=== PATIENT | male | born 1935 | race Caucasian/White ===

== ENCOUNTER 2017-05-01 17:29 | Observation (INO) | payer OTHER, MEDICARE ==
[~2017-05-01] VITALS: Ht 170.2 cm; Wt 93.9 kg
[~2017-05-01 17:29] MED LIST: AMIODARONE200 MG PO; ASPIRIN CHILDRE81 MG PO; ATORVASTATIN CA40 MG PO; B COMPLEX1 SGL PO; CHROMIUM PO; COLCHICINE0.6 MG PO; FISH OIL1000 MG PO; FOLIC ACID 1 MG PO; FOLIC ACID0.4 MG PO; FUROSEMIDE20 MG PO; LAXATIVE5 M1 PO; MAGNESIUM OXID400 MG PO; MELATONIN 3 MG-1 TAB PO; MULTIVITAMIN1 TAB PO; PROSCAR5 MG PO; PROTONIX 40MG T40 MG PO; SAW PALMETTO S450 MG PO; SELENIMIN PO; SIMVASTATIN40 MG PO; SOTALOL HCL80 MG PO; TRICOR 48MG48 MG PO; VITAMIN C1000 M1 PO; VITAMIN D1000 IU PO; WARFARIN SODIUM5 MG PO
--- NOTE | 2017-05-01 17:38 | NUR ---
PT TO ER C/C CHEST PAIN, PAIN WITH DEEP INSPIRATION AND INDIGESTION X 2 HRS. PATIENT STATES PAIN STARTED WHILE DRIVING. HX OF WI AND AFIB, ON COUMADIN. DENIES NAUSEA, DIAPHORESIS OR JAW PAIN.
--- NOTE | 2017-05-01 17:43 | NUR ---
PT PRESENTS WITH . 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 REPORTS ITS RIGHT AND LEFT LOWER CHEST WALL, ACROSS ENTIRE ANTERIOR LOWER CHEST WALL. REPORTS PAIN WORSENS WITH DEEP BREATH. FLEW FROM [place] ON April. HX OF AMI, LAST 2 YEARS AGO WITH BYPASS SURGERY THEN. AT BEDSIDE. 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 RATES CP 3/10 AT THIS TIME. DENIES N/V, FEVER/CHILLS, SOB. WILL CONT TO MONITOR.
--- NOTE | 2017-05-01 17:49 | ED CARDIAC/CP/PALPITATIONS ---
History of Present Illness General Chief Complaint: Chest Pain Stated Complaint: CP Source: patient, family, old records Exam Limitations: no limitations Vital Signs & Intake/Output Vital Signs & Intake/Output Vital Signs Date Time Temp Pulse Resp B/P B/P Pulse O2 O2 Flow FiO2 Mean Ox Delivery Rate 05/01 1950 65 15 118/68 95 Room Air 05/01 1737 97.3 92 18 154/91 96 Allergies Coded Allergies: metoprolol (RASH 01/14/16) acetaminophen (From PERCOCET) (NERVOUS 01/14/16) oxycodone (From PERCOCET) (NERVOUS 01/14/16) Reconcile Medications Amiodarone HCl 200 MG TABLET 1 TAB PO DAILY HEART (Reported) Ascorbic Acid (Vitamin C) 1,000 MG TABLET 1 TAB PO DAILY SUPPLEMENT (Reported ) Atenolol 50 MG TABLET 1 TAB PO BID HEART (Reported) Atorvastatin Calcium 40 MG TABLET 1 TAB PO DAILY CHOLESTEROL (Reported) Cholecalciferol (Vitamin D3) (Vitamin D3) 1,000 UNIT CAPSULE 1 CAP PO DAILY SUPPLEMENT (Reported) Chromium Picolinate 200 MCG TABLET 1 TAB PO DAILY BLOOD SUGAR (Reported) Digoxin 125 MCG TABLET 1 TAB PO DAILY HEART (Reported) Finasteride 5 MG TABLET 1 TAB PO DAILY PROSTATE (Reported) Folic Acid 0.8 MG CAPSULE 1 CAP PO DAILY SUPPLEMENT (Reported) Losartan Potassium 50 MG TABLET 0.5 TAB PO DAILY HEART (Reported) Magnesium Oxide (Magnesium) 250 MG TABLET 1 TAB PO DAILY SUPPLEMENT (Reported ) Melatonin 5 MG TABLET 1 TAB PO DAILY SUPPLEMENT (Reported) Multivitamin,Ther and Minerals (Multivitamins With Minerals Hp) 1 EACH CAPSULE 1 CAP PO DAILY SUPPLEMENT (Reported) [place]-3/Dha/Epa/Fish Oil (Fish Oil 1,000 MG Softgel) (Unknown Strength) CAPSULE (Unknown Dose) PO DAILY SUPPLEMENT (Reported) Omeprazole 20 MG TABLET.DR 1 TAB PO DAILY ACID REFLUX (Reported) Sennosides/Docusate Sodium (Senokot-S Tablet) 8.6 MG-50 MG TABLET 1 TAB PO DAILY LAXATIVE (Reported) Warfarin Sodium 5 MG TABLET 1 TAB PO AD BLOOD THINNER (Reported) Triage Note: PT TO ER C/C CHEST PAIN, PAIN WITH DEEP INSPIRATION AND INDIGESTION X 2 HRS. PATIENT STATES PAIN STARTED WHILE DRIVING. HX OF RI AND AFIB, ON COUMADIN. DENIES NAUSEA, DIAPHORESIS OR JAW PAIN. Triage Nurses Notes Reviewed? yes Onset: Abrupt Duration: hour(s): (3), better, gone now Timing: single episode today Quality/Severity: moderate, ingestion Location: central, epigastric Radiation: no radiation Activities at Onset: DRIVING Prior Chest Pain/Card Workup: no prior cardiac workup, heart attack Nitro Today/Relief: no nitro taken today Aspirin Today: 81 mg x 1 (PT TAKES DAILY) HPI: 81-year-old male with a hx of coronary artery disease, A. fib, and GERD presents complaining of chest pain for the past 3 hours. Patient reports that he was driving his car when he suddenly felt pain on both sides of his chest. Pain was associated with indigestion and feelings of heartburn. Patient reports pain is located just below his nipple line on both sides of the chest. when the pain was present patient reported that it was a 8 out of 10 and did not radiate. He describes the pain as a dull ache that is worse with deep inspiration. He reports that he had similar symptoms several years ago when he had a heart attack. Patient states that about 20 or 30 minutes after arriving to the emergency department his pain is gone away completely. He did not take any medications for the pain. There are no alleviating or aggravating factors. Patient also reports that over the past week he has had cough and congestion. Patient is on Coumadin for A. fib. No nausea, vomiting, abdominal pain, back pain, fever, hemoptysis, sweats, chills. His national sales executive is Dr. Rice. (SMITHA DELGADO PA-C) Past History Travel History Traveled to [place] past 21 day No Medical History Any Pertinent Medical History? see below for history Cardiovascular: AFIB, angina, CAD, hypertension, hyperlipidemia, CABG PACER Respiratory: pneumonia Gastrointestinal: GERD Renal: benign prost hyperplasia Musculoskeletal: gout, osteoarthritis Blood Disorders: DVT History of MRSA: No History of VRE: No History of CDIFF: No Pneumonia Vaccine: 09/10/07 Surgical History Surgical History: CABG, knee replacement (right), pacemaker placement cardiac valve replacement Psychosocial History Who do you live with Spouse Services at Home Nursing What is your primary language Tajik Tobacco Use: Quit >30 days ago Family History Hx Contributory? Yes (SMITHA DELGADO PA-C) Review of Systems Review of Systems Constitutional: Reports: no symptoms. EENTM: Reports: no symptoms. Respiratory: Reports: see HPI, cough. Cardiovascular: Reports: see HPI, chest pain. GI: Reports: no symptoms. Genitourinary: Reports: no symptoms. Musculoskeletal: Reports: no symptoms. Skin: Reports: no symptoms. Neurological/Psychological: Reports: no symptoms. Hematologic/Endocrine: Reports: no symptoms. Immunologic/Allergic: Reports: no symptoms. All Other Systems: Reviewed and Negative (SANDY ANSARI,SMITHA) Physical Exam Physical Exam General Appearance: well developed/nourished, no apparent distress, alert, awake , comfortable Head: atraumatic, normal appearance Eyes: Bilateral: normal appearance, PERRL, EOMI. Ears, Nose, Throat: normal pharynx, normal ENT inspection, hearing grossly normal Neck: normal inspection, supple, full range of motion Respiratory: normal breath sounds, chest non-tender, no respiratory distress, lungs clear Cardiovascular: regular rate/rhythm, normal peripheral pulses Peripheral Pulses: 2+ tibialis posterior (R), 2+ tibialis posterior (L), 2+ dorsalis pedis (R), 2+ dorsalis pedis (L) Gastrointestinal: normal bowel sounds, non-tender Back: normal inspection, normal range of motion, no vertebral tenderness Extremities: normal inspection, normal capillary refill, normal range of motion, no edema Neurologic/Psych: no motor/sensory deficits, awake, alert, oriented x 3, normal gait, normal mood/affect Reflexes: 2+: knee (R), knee (L). Skin: intact, normal color, warm/dry Lymphatic: no anterior cervical ying Core Measures ACS in differential dx? Yes Severe Sepsis Present: No Septic Shock Present: No (SANDY ANSARI,SMITHA) Progress Differential Diagnosis: AMI, aortic dissection, atrial fibrillation, CHF/pulm edema, costochondritis, myocarditis, pancreatitis, pericarditis, pneumonia, pneumothorax, pulmonary embolism, rib fracture Plan of Care: Orders Procedure Date/time Status Regular Diet 05/02 B Active TROPONIN LEVEL 05/02 0300 Active EKG 05/02 300 Active TROPONIN LEVEL 05/01 2140 Complete EKG 05/01 2140 Active Patient Data 05/01 2047 Active OXYGEN SETUP (GEN) 05/01 2037 Active Saline Lock 05/[address] in observation 05/01 2037 Active Vital Signs 05/01 2037 Active Activity/Ambulation 05/01 2037 Active Code Status 05/01 2037 Active Add-on Test (ER Only) 05/01 1927 Active Add-on Test (ER Only) 05/01 1818 Active URINALYSIS 05/01 1818 Complete D-DIMER 05/01 180 Complete MAGNESIUM 05/01 180 Complete LIPASE 05/01 180 Complete B-TYPE NATRIURETIC PEP (BNP) 05/01 180 Complete Intake & Output 05/01 1748 Active TROPONIN LEVEL 05/01 1737 Complete PROTHROMBIN TIME 05/01 1737 Complete COMPREHENSIVE METABOLIC PANEL 05/01 1737 Complete CBC WITHOUT DIFFERENTIAL 05/01 1737 Complete EKG 05/01 173 Active Laboratory Tests 05/01/17 2144: Troponin I < 0.01 05/01/171817: Magnesium Cancelled, [id number]-Hhgdcxkmvmq Pept Cancelled, Lipase Cancelled, D-Dimer High Sensitivty Cancelled, Urine Color YEL, Urine Clarity CLEAR, Urine pH 6.0, Ur Specific [place] 1.015, Urine Protein NEG, Urine Ketones NEG, Urine Nitrite NEG, Urine Bilirubin NEG, Urine Urobilinogen 0.2, Ur Leukocyte Esterase NEG, Ur Microscopic EXAM NOT REQUIRED, Urine Hemoglobin NEG, Urine Glucose NEG 05/01/171807: PT 33.0 H, INR 3.18 H, D-Dimer High Sensitivty < 200 05/01/171804: Anion Gap 7, Estimated GFR > 60, BUN/Creatinine Ratio 28.6 H, Glucose 122 H, Calcium 9.5, Magnesium 1.9, Total Bilirubin 0.7, AST 28, ALT 37, Alkaline Phosphatase 53, Troponin I < 0.01, Lez-L-Kvgsfgcwjyb Pept 651 H, Total Protein 6.5, Albumin 3.9, Globulin 2.6, Albumin/Globulin Ratio 1.5, Lipase 144, CBC w Diff NO MAN DIFF REQ, RBC 4.51 L, MCV 95.8 H, MCH 31.5 H, RDW 14.1, MPV 7.6, Gran % 69.1, Lymphocytes % 18.3 L, Monocytes % 10.9 H, Eosinophils % 1.4, Basophils % 0.3, Absolute Granulocytes 4.8, Absolute Lymphocytes 1.3, Absolute Monocytes 0.8 H, Absolute Eosinophils 0.1, Absolute Basophils 0, PUBS MCHC 32.9 L Patient is currently chest pain-free and appears well on exam. Due to his history of RI with similar symptoms he will need a cardiac workup. 7:19 PM: Initial blood work and chest x-ray is within normal limits. Troponin is negative. Patient's national sales executive Dr. Rice was paged. Patient will require another set of troponin and EKG. 7:29 PM: Spoke with on-call cardiology Dr. Palmer. He feels patient needs to stay for obs even after a second negative troponin due to history of RI that presented similarly. Spoke with case management and they'll work on placement patient. Patient will be placed in ED observation to rule out acute coronary syndrome. Spoke with MOD and admission orders put in place. (SMITHA DELGADO PA-C) Initial ED EKG: a flutter with predom 3:1 AV block, A rate 220, LBBB Comments: PATIENT: DOROTA ARREDONDO PRESENT AGE: 81 PATIENT ACCOUNT NO: [id number] : 36 LOCATION: [facility] ORDERING PHYSICIAN: SMITHA DELGADO PA-C SERVICE DATE: 05/01/17 EXAM TYPE: RAD - XRY-PORTABLE CHEST XRAY EXAMINATION: XR PORTABLE CHEST CLINICAL INFORMATION: Chest pain COMPARISON: Chest x-ray 05/23/2016. CT chest 05/23/2015 TECHNIQUE: Portable frontal view of the chest was obtained. 6:36 PM FINDINGS: Status post median sternotomy. Pacemaker leads in right atrium and right ventricle. There is vascular wall calcifications of thoracic aorta. Linear streaky scarring and/or subsegmental atelectasis in the peripheral left midlung. This is less pronounced than chest x-ray of 05/23/2015. No consolidative infiltrate. No pulmonary vascular congestion and no pleural effusion. IMPRESSION: No acute abnormality the chest. DICTATED BY: WALDO PITTMAN MD DATE/TIME DICTATED:05/01/171903 MELTER OPERATOR:SUKI DATE/TIME TRANSCRIBED:05/01/171903 (SMITHA DELGADO PA-C) Departure Departure Disposition: STILL A PATIENT Condition: Stable Clinical Impression Primary Impression: Chest pain Qualifiers: Chest pain type: unspecified Qualified Code: R07.9 - Chest pain, unspecified Referrals: THOMAS JOHNSON MD (PCP/Family) Departure Forms: Customer Survey General Discharge Information Observation Note Spoke With: GINA EPPS MD Physician Advisor Notified: SHELLY VIERA,LETI [address] Patient In: ED Observation Rationale for Observation: My rational for observation is as follows; patient reports chest pain that is similar to previous RI 2 years ago. He'll require telemetry monitoring, monitoring vital signs, monitoring symptoms, serial labs, serial EKGs, cardiology consult, stress test. (SMITHA DELGADO PA-C) PA/STUDIO ARTIST Co-Sign Statement Statement: ED Attending supervision documentation- x I saw and evaluated the patient. I have also reviewed all the pertinent lab results and diagnostic results. I agree with the findings and the plan of care as documented in the PA's/STUDIO ARTIST's documentation. [] I have reviewed the ED Record and agree with the PA's/STUDIO ARTIST's documentation. [] Additions or exceptions (if any) to the PAs/STUDIO ARTIST's note and plan are summarized below: [] (JOLLY VIERA,PEPE) Critical Care Note Critical Care Note Critical Care Time: non-applicable (SMITHA DELGADO PA-C)
--- NOTE | 2017-05-01 18:06 | NUR ---
STARTED IV, FREDDIE BLOOD WORK AND SENT TO LAB. MADISON DELGADO AT BEDSIDE AT THIS TIME.
[2017-05-01 18:17] LABS: ABSOLUTE BASOPHIL COUNT 0 /CUMM (0.0-0.2); ABSOLUTE EOSINOPHIL COUNT 0.1 /CUMM (0.0-0.7); ABSOLUTE GRANULOCYTE CT 4.8 /CUMM (1.4-6.5); ABSOLUTE LYMPH COUNT 1.3 /CUMM (1.2-3.4); ABSOLUTE MONOCYTE COUNT 0.8 /CUMM (0.10-0.60); BASOPHIL % 0.3 % (0.0-2.0); EOSINOPHIL % 1.4 % (0-5); GRANULOCYTE % 69.1 % (42.2-75.2); HEMATOCRIT 43.2 % (42-52); MEAN CORPUSCULAR HGB 31.5 PG (27.0-31.0); MEAN CORPUSCULAR HGB CONC 32.9 G/DL (33.0-37.0); MEAN CORPUSCULAR VOLUME 95.8 FL (80.0-94.0); MEAN PLATELET VOLUME 7.6 FL (7.4-10.4); PLATELET COUNT 131 /CUMM (130-400); RBC DISTRIBUTION WIDTH 14.1 % (11.5-14.5); RED BLOOD CELL CT 4.51 /CUMM (4.70-6.10); WHITE BLOOD CELL COUNT 6.9 /CUMM (4.8-10.8)
--- NOTE | 2017-05-01 18:51 | NUR ---
URINE OBTAINED AND SENT TO LAB. PT DENIES CP AT THIS TIME.
[2017-05-01] MEDS ORDERED: ATENOLOL50 M1 PO (19:00)
[2017-05-01] MEDS ORDERED: WARFARIN SODIUM5 M1 PO (19:00)
[2017-05-01] MEDS ORDERED: ATORVASTATIN CA40 M1 PO (19:00)
[2017-05-01] MEDS ORDERED: OMEPRAZOLE20 M3 PO (19:01)
[2017-05-01] MEDS ORDERED: FISH OIL 1,0001 EAC3 PO (19:01)
[2017-05-01] MEDS ORDERED: LOSARTAN POTASS50 M1 PO (19:01)
[2017-05-01] MEDS ORDERED: SENOKOT-S TABL1 EACH PO (19:02)
[2017-05-01] MEDS ORDERED: MULTIVITAMINS1 EAC3 PO (19:02)
[2017-05-01] MEDS ORDERED: VITAMIN C1000 M4 PO (19:03)
[2017-05-01] MEDS ORDERED: MAGNESIUM250 M2 PO (19:03)
[2017-05-01] MEDS ORDERED: VITAMIN D31000 UNI1 PO (19:03)
[2017-05-01] MEDS ORDERED: FINASTERIDE5 M1 PO (19:04)
[2017-05-01] MEDS ORDERED: DIGOXIN125 MCG PO (19:04)
[2017-05-01] MEDS ORDERED: MELATONIN5 M7 PO (19:04)
[2017-05-01] MEDS ORDERED: CHROMIUM PICO200 MC2 PO (19:05)
[2017-05-01] MEDS ORDERED: AMIODARONE HCL200 M1 PO (19:05)
[2017-05-01] MEDS ORDERED: FOLIC ACID0.8 M1 PO (19:05)
--- NOTE | 2017-05-01 19:10 | RADIOLOGY REPORT ---
EXAMINATION: XR PORTABLE CHEST CLINICAL INFORMATION: Chest pain COMPARISON: Chest x-ray 05/23/2016. CT chest 05/23/2015 TECHNIQUE: Portable frontal view of the chest was obtained. 6:36 PM FINDINGS: Status post median sternotomy. Pacemaker leads in right atrium and right ventricle. There is vascular wall calcifications of thoracic aorta. Linear streaky scarring and/or subsegmental atelectasis in the peripheral left midlung. This is less pronounced than chest x-ray of 05/23/2015. No consolidative infiltrate. No pulmonary vascular congestion and no pleural effusion. IMPRESSION: No acute abnormality the chest.
--- NOTE | 2017-05-01 19:52 | NUR ---
PT RESTING IN BED AT THIS TIME, RESP EVEN AND NONLABORED, EQUAL RISE AND FALL OF THE CHEST AND IN NAD. DENIES PAIN OR DISCOMFORT AT THIS TIME. REMAINS AT BEDSIDE. PT REMAINS ON MONITORS IN ROOM. DENIES SOB.
--- NOTE | 2017-05-01 20:45 | NUR ---
PT REMAINS PAIN FREE. IS AWARE OF BEING ADMITTED FOR OBS. , ASHA WENT HOME. PT REMAINS ON MONITOR IN ROOM. DENIES NAUSEA OR SOB. ASSISTED WITH URINAL, 400 OUTPUT. WILL CONT TO MONITOR.
--- NOTE | 2017-05-01 21:46 | NUR ---
REPEAT TROPONIN DRAWN AND EKG COMPLETED BY PATRON ATTENDANT. PT CONT TO DENY CP OR SOB. DENIES NAUSEA. WILL CONT TO MONITOR.
--- NOTE | 2017-05-01 22:05 | NUR ---
GAVE PT CRACKERS AND JUICE PER HIS REQUEST.
--- NOTE | 2017-05-01 22:09 | History & Physical ---
GUSTAVO PUENTE 05/01/17 9039: General Information and HPI MD Statement: I have seen and personally examined DOROTA ARREDONDO and documented this H&P. The patient is a 81 year old M who presented with a patient stated chief complaint of chest pain Source of Information: patient, old records Exam Limitations: no limitations History of Present Illness: 79-year-old gentleman from home with pmh significant for NSTEMI April 2015, s/p coronary artery bypass surgery, MAZE/JANAE ligation and bioprosthetic aortic valve replacement, tachybradycardia syndrome s/p dual-chamber pacemaker on 05/08 done at [facility], history of right leg DVT, PAF on Coumadin came to hospital for evaluation of chest pressure. 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 He initially thought it was heartburn and took a couple of TUMs without relief. This episode lasted till about 4pm, associated with pleuritic chest pain and lightheadness and worsened to about 8/10. Nurse present there took his vitals and said that they were normal. On interview he was painfree. About a week ago he saw his PCP Dr. Johnson for a sinus infection and was given Mucinex. States that he had an echo done 6 months ago and two months ago he had his pacemaker interrogated at Dr. Meraz's Office. Denies radiation, SOB, palpitations, syncope, orthopnea, pedal edema fever, chills, bowel and bladder symptoms Allergies/Medications Allergies: Coded Allergies: metoprolol (RASH 01/14/16) acetaminophen (From PERCOCET) (NERVOUS 01/14/16) oxycodone (From PERCOCET) (NERVOUS 01/14/16) Home Med list Amiodarone HCl 200 MG TABLET 1 TAB PO DAILY HEART (Reported) Ascorbic Acid (Vitamin C) 1,000 MG TABLET 1 TAB PO DAILY SUPPLEMENT (Reported ) Atenolol 50 MG TABLET 1 TAB PO BID HEART (Reported) Atorvastatin Calcium 40 MG TABLET 1 TAB PO DAILY CHOLESTEROL (Reported) Cholecalciferol (Vitamin D3) (Vitamin D3) 1,000 UNIT CAPSULE 1 CAP PO DAILY SUPPLEMENT (Reported) Chromium Picolinate 200 MCG TABLET 1 TAB PO DAILY BLOOD SUGAR (Reported) Digoxin 125 MCG TABLET 1 TAB PO DAILY HEART (Reported) Finasteride 5 MG TABLET 1 TAB PO DAILY PROSTATE (Reported) Folic Acid 0.8 MG CAPSULE 1 CAP PO DAILY SUPPLEMENT (Reported) Losartan Potassium 50 MG TABLET 0.5 TAB PO DAILY HEART (Reported) Magnesium Oxide (Magnesium) 250 MG TABLET 1 TAB PO DAILY SUPPLEMENT (Reported ) Melatonin 5 MG TABLET 1 TAB PO DAILY SUPPLEMENT (Reported) Multivitamin,Ther and Minerals (Multivitamins With Minerals Hp) 1 EACH CAPSULE 1 CAP PO DAILY SUPPLEMENT (Reported) Avon-3/Dha/Epa/Fish Oil (Fish Oil 1,000 MG Softgel) (Unknown Strength) CAPSULE (Unknown Dose) PO DAILY SUPPLEMENT (Reported) Omeprazole 20 MG TABLET.DR 1 TAB PO DAILY ACID REFLUX (Reported) Sennosides/Docusate Sodium (Senokot-S Tablet) 8.6 MG-50 MG TABLET 1 TAB PO DAILY LAXATIVE (Reported) Warfarin Sodium 5 MG TABLET 1 TAB PO AD BLOOD THINNER (Reported) Compliance With Home Meds: GOOD Observation Initial Note - I have personally examined DOROTA ARREDONDO on 05/01/17 at 2250. The disposition of DOROTA ARREDONDO is uncertain at this time and before a determination can be made, he requires a period of observation for the following reasons multiple cardiac risk factors including previous NH. LELO score 3 (13% of all cause mortalilty, recurrent NH), BENTLEY score 116, intermediate, 1% risk of inhospital mortality and 7% post discharge Mortality. Past History Travel History Traveled to [place] past 21 day No Medical History Cardiovascular: AFIB, angina, CAD, hypertension, hyperlipidemia, CABG PACER Respiratory: pneumonia Gastrointestinal: GERD Renal: benign prost hyperplasia Musculoskeletal: gout, osteoarthritis Blood Disorders: DVT History of MRSA: No History of VRE: No History of CDIFF: No Pneumonia Vaccine: 09/10/07 Surgical History Surgical History: CABG, knee replacement (right), pacemaker placement cardiac valve replacement Past Family/Social History Psychosocial History Who Do You Live With? spouse Services at Home: Nursing Primary Language: Albanian Functional Ability ADLs Independent: dressing, eating, toileting, bathing. Ambulation: cane IADLs Independent: telephone. Needs Assist: shopping, housework, finances, transportation, medication admin. Review of Systems Review of Systems Constitutional: Denies: chills, diaphoresis, fever, malaise, weakness, unexplained weight loss. Cardiovascular: Reports: chest pain. Denies: edema, orthopena, palpitations, peripheral edema, syncope. Respiratory: Denies: cough, hemoptysis, orthopnea, short of breath, sputum production, stridor, wheezing. GI: Denies: abdominal pain, bloating, constipation, diarrhea, distention, bowel incontinence, melena, nausea, bloody stool, changes in stool, vomiting, steatorrhea. Genitourinary: Denies: discharge, dysuria, frequency, hematuria, hesitation, nocturia, pain, urgency. Exam & Diagnostic Data Last 24 Hrs of Vital Signs/I&O Vital Signs Date Time Temp Pulse Resp B/P B/P Pulse O2 O2 Flow FiO2 Mean Ox Delivery Rate 05/01 2235 96.2 78 16 121/80 95 Room Air 05/01 1950 65 15 118/68 95 Room Air 05/01 1737 97.3 92 18 154/91 96 Physical Exam General Appearance Alert, Oriented X3, Cooperative, No Acute Distress Skin No Significant Lesion HEENT Atraumatic, PERRLA, EOMI, Mucous Membr. moist/pink Neck Supple, No JVD, No thryomegaly, +2 Carotid Pulse wo Bruit, No LAD Cardiovascular Regular Rate, Normal S1, Normal S2 Lungs Clear to Auscultation, Normal Air Movement Abdomen Normal Bowel Sounds, Soft, No Tenderness Neurological Normal Speech, Strength at 5/5 X4 Ext, Normal Tone, Sensation Intact, Cranial Nerves 3-12 NL Extremities No Edema, Normal Pulses, mild decrease ROM of left arm Vascular Normal Pulses, Pulses Symmetrical Last 24 Hrs of Labs/Luther: Laboratory Tests 05/01/174: Troponin I < 0.01 05/01/17 181: Magnesium Cancelled, Loy-A-Dklbhuvuzua Pept Cancelled, Lipase Cancelled, D-Dimer High Sensitivty Cancelled, Urine Color YEL, Urine Clarity CLEAR, Urine pH 6.0, Ur Specific [place] 1.015, Urine Protein NEG, Urine Ketones NEG, Urine Nitrite NEG, Urine Bilirubin NEG, Urine Urobilinogen 0.2, Ur Leukocyte Esterase NEG, Ur Microscopic EXAM NOT REQUIRED, Urine Hemoglobin NEG, Urine Glucose NEG 05/01/17 180: PT 33.0 H, INR 3.18 H, D-Dimer High Sensitivty < 200 06/22/17 1805: Anion Gap 7, Estimated GFR > 60, BUN/Creatinine Ratio 28.6 H, Glucose 122 H, Calcium 9.5, Magnesium 1.9, Total Bilirubin 0.7, AST 28, ALT 37, Alkaline Phosphatase 53, Troponin I < 0.01, Pkk-J-Afukzbsoynf Pept 651 H, Total Protein 6.5, Albumin 3.9, Globulin 2.6, Albumin/Globulin Ratio 1.5, Lipase 144, CBC w Diff NO MAN DIFF REQ, RBC 4.51 L, MCV 95.8 H, MCH 31.5 H, RDW 14.1, MPV 7.6, Gran % 69.1, Lymphocytes % 18.3 L, Monocytes % 10.9 H, Eosinophils % 1.4, Basophils % 0.3, Absolute Granulocytes 4.8, Absolute Lymphocytes 1.3, Absolute Monocytes 0.8 H, Absolute Eosinophils 0.1, Absolute Basophils 0, PUBS MCHC 32.9 L Diagnostic Data EKG Results Normal sinus rhythm, old Left bundle branch block CXR Results FINDINGS: Status post median sternotomy. Pacemaker leads in right atrium and right ventricle. There is vascular wall calcifications of thoracic aorta. Linear streaky scarring and/or subsegmental atelectasis in the peripheral left midlung. This is less pronounced than chest x-ray of 05/23/2015. No consolidative infiltrate. No pulmonary vascular congestion and no pleural effusion. IMPRESSION: No acute abnormality the chest. Assessment/Plan Assessment: 79-year-old gentleman from home with pmh significant for NSTEMI April 2015, s/p coronary artery bypass surgery, MAZE/JANAE ligation and bioprosthetic aortic valve replacement, tachybradycardia syndrome s/p dual-chamber pacemaker on 05/08 done at [facility], history of right leg DVT, PAF on Coumadin came to hospital for evaluation of chest pressure. Will admit to telemetry as observation. As Ranked By This Provider Problem List: 1. Chest pain Assessment/Plan d/d NTEMI vs unstable angina VS GERD LELO score 3 (13% of all cause mortalilty, recurrent NH), BENTLEY score 116, intermediate, 1% risk of inhospital mortality and 7% post discharge Mortality. admit to tele floor as OBS for continuous cardiac monitoring will trend trop and EKG to r/o ACS Last Echo per our records show EF of 55%, Mild-to- moderate tricuspid regurgitation, abnormal septal motion, Catheter/pacemaker wire in the right ventricular cavity ED contacted Cardiology Continue home meds of Dose Coumadin per INR DVT ppx with Coumadin heart health diet full code Qualifiers Chest pain type: unspecified Qualified Code: R07.9 - Chest pain, unspecified Core Measures/Miscellaneous Acute Coronary Syndrome ACS Diagnosis: No Cerebrovascular Accident CVA/TIA Diagnosis: No Congestive Heart Failure CHF Diagnosis: No VTE (View Protocol) VTE Risk Factors: Acute medical illness, Age > 40 [facility] prophylaxis d/t: No contraindications No VTE Pharm Prophylaxis d/t: No contraindications VTE Diagnosis: No VTE Type: NONE VTE Confirmed by (Test): NONE Sepsis (View Protocol) Severe Sepsis Present: No Septic Shock Septic Shock Present: No Miscellaneous Documentation Attending Case Discussed With: GINA EPPS MD Primary Care Physician: THOMAS JOHNSON MD Patient sees these Specialists Dr. Meraz Level of Patient Care: Telemetry ELPIDIO ANTOINE 05/01/17 2303: Resident Review Statement Resident Statement: examined this patient, reviewed images Other Findings: Patient is 81 year old male with PMH of CAD status post CABG in 2014, bioprosthetic atrial valve replacement, followed by dual-chamber permanent pacemaker placement for tachybradycardia syndrome, ablation of right atrial appendage, paroxysmal atrial fibrillation on anticoagulation. Patient reports that he was in his usual state of health when around 3pm today, he started having chest discomfort he best explained as heart burn. 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 8/10, over his precordal region. He denied any associated palpitations, shortness of breath however he reported of dizziness and lightheadedness. Patient said that he had his blood pressure taken by nurse at that time and she told he that he needs to go to ER. Patient reports that he has been very complient with taking his medications and had a follow up appointment with Dr. Dani Meraz in May 2017. Vitals and Labs as anabelle CXR- normal Assessment and plan Will admit patient to telemetry floor for closer monitoring given his history of NH followd by CABG in 2014 will trend troponins and get serial EKG Will request for Cardiology consult. Patient reports he had an echocardiogram done in Dr. Dani Metcalf office 6 months ago, will obtain records. Patient is on warfarin for paroxysmal Atrial fibrillation, will follow up morning INR and order warfarin accordingly Patient is continued on home meds including digoxin, amiodarone, statin, atenolol, losartan etc Patient reports he had sinus infection 1 week ago, he does not have any leukocytosis and has been afebrile. Will continue to monitor and order mucinex to losen the phelm. Will obtain lower resp culture DVT ppx patient on warfarin, supra therapeutic INR Patient is full code. [facility] 0919: Attending Review Statement Attending Statement Attending MD Statement: examined this patient, discuss w/resident/PA/OPERATIONS BOARDMAN, agreed w/resident/PA/OPERATIONS BOARDMAN, discussed with family, reviewed EMR data (avail)
--- NOTE | 2017-05-01 22:23 | NUR ---
BED 179
--- NOTE | 2017-05-01 22:33 | NUR ---
REPORT GIVEN TO KRISTIN NEAL AND TRANSPORT BOOKED.
[2017-05-02 04:05] LABS: ABSOLUTE BASOPHIL COUNT 0 /CUMM (0.0-0.2); ABSOLUTE EOSINOPHIL COUNT 0.1 /CUMM (0.0-0.7); ABSOLUTE GRANULOCYTE CT 3.8 /CUMM (1.4-6.5); ABSOLUTE LYMPH COUNT 1.7 /CUMM (1.2-3.4); ABSOLUTE MONOCYTE COUNT 0.7 /CUMM (0.10-0.60); BASOPHIL % 0.6 % (0.0-2.0); EOSINOPHIL % 2.1 % (0-5); HEMATOCRIT 43.6 % (42-52); MEAN CORPUSCULAR HGB 32.1 PG (27.0-31.0); MEAN CORPUSCULAR HGB CONC 33.5 G/DL (33.0-37.0); MEAN CORPUSCULAR VOLUME 95.8 FL (80.0-94.0); MEAN PLATELET VOLUME 7.8 FL (7.4-10.4); PLATELET COUNT 113 /CUMM (130-400); PT 26.5 SEC (9.4-12.5); RBC DISTRIBUTION WIDTH 13.6 % (11.5-14.5); RED BLOOD CELL CT 4.55 /CUMM (4.70-6.10); WHITE BLOOD CELL COUNT 6.4 /CUMM (4.8-10.8)
--- NOTE | 2017-05-02 05:20 | PN-Observation ---
Observation Note Observation Note _ I have personally examined DOROTA ARREDONDO. him disposition is uncertain at this time. Before a determination can be made, he requires continued observation for the following reasons: * Cardiology consult Assessment/Plan Assessment: 81 year old man with multiple medical problems significant for NSTEMI April 2015 s/p CABG, MAZE.JANAE ligation with bioprosthetic aortic valve replacement, Tachybrady syndrome s/p dual chamber pacemaker, and paroxsysmal atrial fibrillation coumadin seen for evaluation of chest pressure and lighteadedness. #Chest Pain, Rule Out ACS #History of NSTEMI #CAD s/p CABG #History of Paroxsysmal Atrial Fibrillation #Bioprosthetic Aortic Valve #Tachybrady Syndrome s/p Pacemaker Patient of cardiology Dr. Dani Maldonado. He was reportedly seen in the office within the last six months where he reportedly had an echocardiogram done. Vital signs upon initial evaluation were significant for systolic BP up to 154. Labs demonstrated CBC/BMP/LFT/Lipase/BNP that were within normal limits, initial troponin negative, EKG-NSR with old LBBB, CXR-no acute findings. Patient was placed under observation on the telemetry floor for further evaluation. -Telemetry Observation -Trend troponin/EKG -Amiodarone 200mg PO Daily -Digoxin 125mcg PO Daily -Mag-Ox 400mg PO Daily -Cardiology Consult -Obtain echocardiogram records -Daily INR, dose Coumadin accordingly #Hypertension -Atenolol 50mg PO BID -Losartan 25mg PO Daily #Hyperlipidemia-Atorvastatin 40mg PO Daily #BPH-Finasteride 5mg PO Daily #GERD-Omeprazole 20mg PO Daily Pain Plan-None Bowel Regimen-Senna Diet-Heart Healthy Diet DVT PPx-On Coumadin Code Status-FULL CODE Problem List: 1. Chest pain Qualifiers Chest pain type: unspecified Qualified Code: R07.9 - Chest pain, unspecified Consulting Request: Consulting Specialty: Cardiology Subjective Follow-up For: Chest Pain Tele-Events Since Last Visit: Paced Rhythm HR 62-82 PVCs Subjective: Patient seen and examined. He is seen lying flat in bed resting comfortably. He appears to be in no acute distress. He reports that his chest pain and associated pain with deep breaths has completely resovled since he came in the ED yesterday. He otherwise states that he feels fine and has no new subjective complaints. He does however comment that last week we was seen by his PCP for evaluation of a 'sinus infection' and has some nasal/sinus discomfort and associated clear sputum production without fever. He does state that he 'pulled' his left shoulder a recent trip as well. Otherwise he denies any lightheadedness/dizziness, headache, fever, chills, chest pain/discomfort, shortness of breath, nausea, vomiting. Review of Systems Constitutional: Reports: see HPI. Objective Last 24 Hrs of Vital Signs/I&O Vital Signs Date Time Temp Pulse Resp B/P B/P Pulse O2 O2 Flow FiO2 Mean Ox Delivery Rate 05/02 0756 98.0 62 14 120/82 95 Room Air 05/02 0000 78 121/80 05/01 2235 96.2 78 16 121/80 95 Room Air 05/01 1950 65 15 118/68 95 Room Air 05/01 1737 97.3 92 18 154/91 96 Intake & Output 05/02 1600 05/02 0800 05/02 0000 Intake Total 100 Output Total 600 400 Balance -500 -400 Intake, Oral 100 Output, Urine 600 400 Patient 93.894 kg Weight Weight Estimated Measurement Method Physical Exam General Appearance: Alert, Oriented X3, Cooperative, No Acute Distress Other Physical Findings: General-well developed, well nourished elderly man in no acute distress HEENT-NCAT, PERRL, EOMI, anicteric sclera Neck-Supple, no JVD Chest-S1, S2 w/o m/g/r; RRR, Mild Left Scapular tenderness Lung-CTA Bilaterally Abdomen- Soft, mild left sided abdominal tenders w/o guarding or rigidity, nondistended, bowel sounds intact Neuro- Awake and alert, CN II - XII grossly intact Ext- normal pulses, non cyanosis/clubbing/edema
[2017-05-02 07:56] VITALS: BP 120/82
--- NOTE | 2017-05-02 09:16 | Admission Certification ---
Admission Certification Certification Statement - As attending physician, I certify that at the time of - admission, based on clinical presentation, severity of - symptoms, need for further diagnostic testing and - therapeutic interventions, and risk of adverse outcomes - without in-hospital treatment, in my clinical assessment, - this patient requires an acute hospital stay for a minimum - of two nights or longer. I have also considered psychsocial - factors such as support system, advanced age, financial - issues, cognitive issues, and failed out-patient treatments, - past re-admission history, safety of patient, and lack of - compliance as applicable. Specific rationale supporting this admission is: chest pain
--- NOTE | 2017-05-02 09:19 | PN- Att Addend ---
Attending Addendum Attending Brief Note Patient on evaluation this morning denies chest pain. General Appearance: Alert, No Acute Distress Skin: Grossly normal HEENT: PEERLA Neck: Supple, No JVD Cardiovascular: Regular Rate, Normal S1, Normal S2, No Murmurs Lungs: Clear to Auscultation, Normal Air Movement Abdomen: Normal Bowel Sounds, Soft, No Tenderness Neurological: Normal Speech, Strength at 5/5 X4 Ext, Cranial Nerves 3-12 NL, Reflexes 2+ Extremities: No Clubbing, No Cyanosis, No Edema Vascular: Normal Pulses Assessment 79-year-old with history of COPD status post CABG, bioprosthetic aortic valve replacement, tachybradycardia syndrome status post dual-chamber pacemaker, history of DVT and paroxysmal atrial fibrillation on Coumadin presents with lower chest pain that is across his lower chest wall. Pain lasted for a few minutes and then resolve. This cardiac workup including EKGs and troponins have remained negative. He is currently being observed. His last echo was 6 months back. We will get a cardiac evaluation. Further workup as per the accounts receivable associate. Plan Continue all home meds Echocardiogram as per cardiology Follow cardiology recommendations Continue Coumadin Current Medications Sig/Edi Start time Last Medication Dose Route Stop Time Status Admin Amiodarone HCl 200 MG DAILY 05/02 1000 AC PO Atenolol 50 MG BID 05/01 2229 AC 05/02 PO 0000 Atorvastatin Calcium 40 MG 1700 05/02 1700 AC PO Digoxin 0.125 MG 1700 05/02 1700 AC PO Finasteride 5 MG DAILY 05/02 1000 AC PO Losartan Potassium 25 MG DAILY 05/02 1000 AC PO Magnesium Oxide 400 MG DAILY 05/02 1000 AC PO Melatonin 5 MG AT BEDTIME 05/01 2300 AC 05/02 PO 0000 Omeprazole 20 MG DAILY AC 05/02 0700 AC 05/02 PO 0544 Senna/Docusate Sodium 1 TAB DAILY 05/02 1000 AC PO Laboratory Tests 05/02 05/02 05/01 0330 0330 2144 Chemistry Sodium (137 - 145 mmol/L) 135 L Potassium (3.5 - 5.1 mmol/L) 4.2 Chloride (98 - 107 mmol/L) 102 Carbon Dioxide (22 - 30 mmol/L) 26 Anion Gap (5 - 16) 7 BUN (9 - 20 mg/dL) 14 Creatinine (0.7 - 1.2 mg/dL) 0.7 Estimated GFR (>60 ml/min) > 60 BUN/Creatinine Ratio (7 - 25 %) 20.0 Troponin I (<0.11 ng/ml) < 0.01 < 0.01 Triglycerides (<150 mg/dL) 89 Cholesterol (< 200 MG/DL) 124 LDL Cholesterol, Calc (65 - 129 mg/dL) 58 L HDL Cholesterol (40 - 60 mg/dL) 49 Cholesterol/HDL Ratio (0.00 - 4.88 %) 3 Coagulation PT (9.4 - 12.5 SEC) 26.5 H INR (0.90 - 1.17) 2.55 H Hematology CBC w Diff NO MAN DIFF REQ WBC (4.8 - 10.8 /CUMM) 6.4 RBC (4.70 - 6.10 /CUMM) 4.55 L Hgb (14.0 - 18.0 G/DL) 14.6 Hct (42 - 52 %) 43.6 MCV (80.0 - 94.0 FL) 95.8 H MCH (27.0 - 31.0 PG) 32.1 H RDW (11.5 - 14.5 %) 13.6 Plt Count (130 - 400 /CUMM) 113 L MPV (7.4 - 10.4 FL) 7.8 Gran % (42.2 - 75.2 %) 59.0 Lymphocytes % (20.5 - 51.1 %) 27.2 Monocytes % (1.7 - 9.3 %) 11.1 H Eosinophils % (0 - 5 %) 2.1 Basophils % (0.0 - 2.0 %) 0.6 Absolute Granulocytes (1.4 - 6.5 /CUMM) 3.8 Absolute Lymphocytes (1.2 - 3.4 /CUMM) 1.7 Absolute Monocytes (0.10 - 0.60 /CUMM) 0.7 H Absolute Eosinophils (0.0 - 0.7 /CUMM) 0.1 Absolute Basophils (0.0 - 0.2 /CUMM) 0 PUBS MCHC (33.0 - 37.0 G/DL) 33.5 Toxicology Digoxin (0.8 - 2.0 ng/mL) 0.7 L 05/01 05/01 1818 1808 Chemistry Magnesium Cancelled Vdj-B-Gstbrcgtrfr Pept Cancelled Lipase Cancelled Coagulation PT (9.4 - 12.5 SEC) 33.0 H INR (0.90 - 1.17) 3.18 H D-Dimer High Sensitivty (0 - 243 ng/ml) Cancelled < 200 Urines Urine Color (YEL,AMB,STR) YEL Urine Clarity (CLEAR) CLEAR Urine pH (5.0 - 8.0) 6.0 Ur Specific [place] (1.001 - 1.035) 1.015 Urine Protein (NEG,<30 MG/DL) NEG Urine Ketones (NEG) NEG Urine Nitrite (NEG) NEG Urine Bilirubin (NEG) NEG Urine Urobilinogen (0.1 - 1.0 EU/dl) 0.2 Ur Leukocyte Esterase (NEG) NEG Ur Microscopic EXAM NOT REQUIRED Urine Hemoglobin (NEG) NEG Urine Glucose (N MG/DL) NEG 05/01 1805 Chemistry Sodium (137 - 145 mmol/L) 132 L Potassium (3.5 - 5.1 mmol/L) 4.1 Chloride (98 - 107 mmol/L) 100 Carbon Dioxide (22 - 30 mmol/L) 25 Anion Gap (5 - 16) 7 BUN (9 - 20 mg/dL) 20 Creatinine (0.7 - 1.2 mg/dL) 0.7 Estimated GFR (>60 ml/min) > 60 BUN/Creatinine Ratio (7 - 25 %) 28.6 H Glucose (65 - 99 mg/dL) 122 H Calcium (8.4 - 10.2 mg/dL) 9.5 Magnesium (1.6 - 2.3 mg/dL) 1.9 Total Bilirubin (0.2 - 1.3 mg/dL) 0.7 AST (17 - 59 U/L) 28 ALT (21 - 72 U/L) 37 Alkaline Phosphatase (< 127 U/L) 53 Troponin I (<0.11 ng/ml) < 0.01 Ndj-N-Bypnlciwylq Pept (<125 pg/mL) 651 H Total Protein (6.3 - 8.2 g/dL) 6.5 Albumin (3.5 - 5.0 g/dL) 3.9 Globulin (1.9 - 4.2 gm/dL) 2.6 Albumin/Globulin Ratio (1.1 - 2.2 %) 1.5 Lipase (23 - 300 U/L) 144 Hematology CBC w Diff NO MAN DIFF REQ WBC (4.8 - 10.8 /CUMM) 6.9 RBC (4.70 - 6.10 /CUMM) 4.51 L Hgb (14.0 - 18.0 G/DL) 14.2 Hct (42 - 52 %) 43.2 MCV (80.0 - 94.0 FL) 95.8 H MCH (27.0 - 31.0 PG) 31.5 H RDW (11.5 - 14.5 %) 14.1 Plt Count (130 - 400 /CUMM) 131 MPV (7.4 - 10.4 FL) 7.6 Gran % (42.2 - 75.2 %) 69.1 Lymphocytes % (20.5 - 51.1 %) 18.3 L Monocytes % (1.7 - 9.3 %) 10.9 H Eosinophils % (0 - 5 %) 1.4 Basophils % (0.0 - 2.0 %) 0.3 Absolute Granulocytes (1.4 - 6.5 /CUMM) 4.8 Absolute Lymphocytes (1.2 - 3.4 /CUMM) 1.3 Absolute Monocytes (0.10 - 0.60 /CUMM) 0.8 H Absolute Eosinophils (0.0 - 0.7 /CUMM) 0.1 Absolute Basophils (0.0 - 0.2 /CUMM) 0 PUBS MCHC (33.0 - 37.0 G/DL) 32.9 L Vital Signs Date Time Temp Pulse Resp B/P B/P Pulse O2 O2 Flow FiO2 Mean Ox Delivery Rate 05/02 0756 98.0 62 14 120/82 95 Room Air 05/02 0000 78 121/80 05/01 2235 96.2 78 16 121/80 95 Room Air 05/01 1950 65 15 118/68 95 Room Air 05/01 1737 97.3 92 18 154/91 96
--- NOTE | 2017-05-02 09:49 | PN- Student ---
ALBANIA BANERJEE 05/02/17 0937: Subjective Subjective: Pt. is sitting in bed, in no acute distress. He states that he was cold last night, but otherwise slept well. He states he does not have current chest pain, shortness of breath, dyspnea, weakness, thingling, light headedness, sweating, nausea, vomiting, abdominal pain, or swelling. He states that he has not eaten or ambulated since coming from the ED yesterday. In the afternoon, the patient is sitting comfortably. Does not experience any pain. Able to tolerate his meals. Objective Objective: VS: Temp 98.0, HR 62, RR 14, BP 120/82, O2 95% RA PE: General: Calm, cooperative, in no apparent distress. Neuro: CN 2-12 grossly intact Neck: No JVD present CV: RRR, S1 and S2 normal, no murmurs, rubs, or gallops. Lungs: Clear to auscultation bilaterally, no wheezes, rales, or rhonchi. Abdomen: Bowel sounds present in all 4 quadrants. Soft, nondistended, non tender. LE: 2+ pulses bilaterally. No edema present Results Results: Laboratory Tests 05/02/17 0330: Troponin I < 0.01 05/02/17 0330: Anion Gap 7, Estimated GFR > 60, BUN/Creatinine Ratio 20.0, Triglycerides 89, Cholesterol 124, LDL Cholesterol, Calc 58 L, HDL Cholesterol 49, Cholesterol/ HDL Ratio 3, PT 26.5 H, INR 2.55 H, CBC w Diff NO MAN DIFF REQ, RBC 4.55 L, MCV 95.8 H, MCH 32.1 H, RDW 13.6, MPV 7.8, Gran % 59.0, Lymphocytes % 27.2, Monocytes % 11.1 H, Eosinophils % 2.1, Basophils % 0.6, Absolute Granulocytes 3.8, Absolute Lymphocytes 1.7, Absolute Monocytes 0.7 H, Absolute Eosinophils 0.1, Absolute Basophils 0, PUBS MCHC 33.5, Digoxin 0.7 L 05/01/172143: Troponin I < 0.01 05/01/17 1818: Magnesium Cancelled, Lso-D-Euhclapqbss Pept Cancelled, Lipase Cancelled, D-Dimer High Sensitivty Cancelled, Urine Color YEL, Urine Clarity CLEAR, Urine pH 6.0, Ur Specific [place] 1.015, Urine Protein NEG, Urine Ketones NEG, Urine Nitrite NEG, Urine Bilirubin NEG, Urine Urobilinogen 0.2, Ur Leukocyte Esterase NEG, Ur Microscopic EXAM NOT REQUIRED, Urine Hemoglobin NEG, Urine Glucose NEG 05/01/178: PT 33.0 H, INR 3.18 H, D-Dimer High Sensitivty < 200 05/01/17 1805: Anion Gap 7, Estimated GFR > 60, BUN/Creatinine Ratio 28.6 H, Glucose 122 H, Calcium 9.5, Magnesium 1.9, Total Bilirubin 0.7, AST 28, ALT 37, Alkaline Phosphatase 53, Troponin I < 0.01, Ehf-L-Irzpqqmeijd Pept 651 H, Total Protein 6.5, Albumin 3.9, Globulin 2.6, Albumin/Globulin Ratio 1.5, Lipase 144, CBC w Diff NO MAN DIFF REQ, RBC 4.51 L, MCV 95.8 H, MCH 31.5 H, RDW 14.1, MPV 7.6, Gran % 69.1, Lymphocytes % 18.3 L, Monocytes % 10.9 H, Eosinophils % 1.4, Basophils % 0.3, Absolute Granulocytes 4.8, Absolute Lymphocytes 1.3, Absolute Monocytes 0.8 H, Absolute Eosinophils 0.1, Absolute Basophils 0, PUBS MCHC 32.9 L Microbiology 05/02 137 LOWER RESP: Respiratory Culture - COLB 05/02 137 LOWER RESP: Gram Stain - COLB Assessment/Plan Assessment: Pt. is an 81 yo male with a significant hx of CAD, HTN, right sided DVT, prior STEMI with a CABG in 2014, proxysmal atrial fibrillation on coumadin, tachybradycardia syndrome s/p dual chamber pacemaker in 2015, and GERD who was in his usual state of health until he experienced sudden, acute dull chest pain that worsens with deep inspiration, indigestion, and heart burn. -Chest Pain, CAD, HTN, PAF, DVT: Unstable angina vs NSTEMI/STEMI vs PE vs upper respiratory infection vs musculoskeletal pain. The pt stated that he experienced a new, sudden, dull chest pain across his chest at rest that lasted a few hours, which has since resolved. Seeing that the patient has an extensive history of cardiovascular disease, it is possible that he has unstable angina. Since troponin x3 were negative and serial EKG does not show significant changes, NSTEMI/STEMI is less likely. The pt also stated he travelled from [place] last week and has history of DVT, so a PE is another possibility, but CXR did not show evidence of PE, so this dx is less likely. The pt. also states that he developed a cold and was coughing. He may have a lingering URI that could cause pleuritic pain or musculoskeletal pain from coughing. * Telemetry monitoring * Monitor VS * Warfarin 5mg * Digoxin 0.125 mg * Atorvastatin 40mg * Losartan 25 mg * Amiodarone 200mg * Atenolol 50mg * Cardiology Consult * Trend troponin x 3: negative * PT and INR and dose warfarin: 05/02/17 26.5 and 2.55 * BEP for any electrolyte abnormalities that can affect the heart - BPH * Finasteride 5mg -GERD * Omeprazole 20mg
[2017-05-02 10:03] VITALS: BP 120/82
--- NOTE | 2017-05-02 11:58 | Cons- Cardiology ---
General Information and HPI Consulting Request Date of Consult: 05/02/17 Requested By: GINA EPPS MD Reason for Consult: Chest pain Source of Information: patient, old records Exam Limitations: no limitations History of Present Illness: The patient is an 81-year-old gentleman with a past medical history of coronary artery disease (status post bypass surgery in 2014), bioprosthetic aortic valve replacement (2014), sick sinus syndrome (status post maze and left atrial appendage ligation 2014), dual-chamber pacemaker implantation, paroxysmal atrial fibrillation (on Coumadin). He presented with symptoms of chest discomfort. 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 He assumed this was due to his gastroesophageal reflux disease and took antacids without relief. Symptoms were unlike those experienced prior to his bypass surgery. There was no significant radiation of symptoms. Ascribed as moderate, without accompanying diaphoresis palpitations nor lightheadedness. No clear exacerbating or alleviating factors were noted. Of note, the patient states he has had a significant degree of postnasal drip and has had increased cough over the past several days. The patient otherwise describes being able to perform greater than 6 METs of physical activity on a regular basis without difficulty. Allergies/Medications Allergies: Coded Allergies: metoprolol (RASH 01/14/16) acetaminophen (From PERCOCET) (NERVOUS 01/14/16) oxycodone (From PERCOCET) (NERVOUS 01/14/16) Home Med List: Amiodarone HCl 200 MG TABLET 1 TAB PO DAILY HEART (Reported) Ascorbic Acid (Vitamin C) 1,000 MG TABLET 1 TAB PO DAILY SUPPLEMENT (Reported ) Atenolol 50 MG TABLET 1 TAB PO BID HEART (Reported) Atorvastatin Calcium 40 MG TABLET 1 TAB PO DAILY CHOLESTEROL (Reported) Cholecalciferol (Vitamin D3) (Vitamin D3) 1,000 UNIT CAPSULE 1 CAP PO DAILY SUPPLEMENT (Reported) Chromium Picolinate 200 MCG TABLET 1 TAB PO DAILY BLOOD SUGAR (Reported) Digoxin 125 MCG TABLET 1 TAB PO DAILY HEART (Reported) Finasteride 5 MG TABLET 1 TAB PO DAILY PROSTATE (Reported) Folic Acid 0.8 MG CAPSULE 1 CAP PO DAILY SUPPLEMENT (Reported) Losartan Potassium 50 MG TABLET 0.5 TAB PO DAILY HEART (Reported) Magnesium Oxide (Magnesium) 250 MG TABLET 1 TAB PO DAILY SUPPLEMENT (Reported ) Melatonin 5 MG TABLET 1 TAB PO DAILY SUPPLEMENT (Reported) Multivitamin,Ther and Minerals (Multivitamins With Minerals Hp) 1 EACH CAPSULE 1 CAP PO DAILY SUPPLEMENT (Reported) [place]-3/Dha/Epa/Fish Oil (Fish Oil 1,000 MG Softgel) (Unknown Strength) CAPSULE (Unknown Dose) PO DAILY SUPPLEMENT (Reported) Omeprazole 20 MG TABLET.DR 1 TAB PO DAILY ACID REFLUX (Reported) Sennosides/Docusate Sodium (Senokot-S Tablet) 8.6 MG-50 MG TABLET 1 TAB PO DAILY LAXATIVE (Reported) Warfarin Sodium 5 MG TABLET 1 TAB PO AD BLOOD THINNER (Reported) Current Medications: Current Medications Sig/Edi Start time Last Medication Dose Route Stop Time Status Admin Amiodarone HCl 200 MG DAILY 05/02 1000 AC 05/02 PO 1003 Atenolol 50 MG BID 05/01 2229 AC 05/02 PO 1003 Atorvastatin Calcium 40 MG 1700 05/02 1700 AC PO Digoxin 0.125 MG 1700 05/02 1700 AC PO Finasteride 5 MG DAILY 05/02 1000 AC 05/02 PO 1002 Losartan Potassium 25 MG DAILY 05/02 1000 AC 05/02 PO 1002 Magnesium Oxide 400 MG DAILY 05/02 1000 AC 05/02 PO 1002 Melatonin 5 MG AT BEDTIME 05/01 2300 AC 05/02 PO 0000 Omeprazole 20 MG DAILY AC 05/02 0700 AC 05/02 PO 0544 Senna/Docusate Sodium 1 TAB DAILY 05/02 1000 AC 05/02 PO 1002 Warfarin Sodium 5 MG COUMADIN 1700 05/02 1700 AC PO 05/02 2359 Review of Systems Review of Systems: The review of systems is negative for chest pains, palpitations nor lightheadedness. The remainder of the 14 point review of systems is noncontributory with the exception of above. 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 spouse Services at Home: Nursing Primary Language: Sami Smoking Status: Former Smoker Functional Ability ADLs Independent: dressing, eating, toileting, bathing. Ambulation: cane IADLs Independent: telephone. Needs Assist: shopping, housework, finances, transportation, medication admin. Exam & Diagnostic Data Vital Signs and I&O Vital Signs Date Time Temp Pulse Resp B/P B/P Pulse O2 O2 Flow FiO2 Mean Ox Delivery Rate 05/02 1103 Room Air Room Air 05/02 1003 120/82 05/02 1003 98.0 62 14 120/82 05/02 1002 98.0 62 120/82 05/02 0756 98.0 62 14 120/82 95 Room Air 05/02 0000 78 121/80 05/01 2235 96.2 78 16 121/80 95 Room Air 05/01 1950 65 15 118/68 95 Room Air 05/01 1737 97.3 92 18 154/91 96 Intake & Output 05/02 1600 05/02 0800 05/02 0000 05/01 1600 05/01 0800 05/01 0000 Intake Total 100 Output Total 600 400 Balance -500 -400 Intake, Oral 100 Output, Urine 600 400 Patient 207 lb Weight Weight Estimated Measurement Method Physical Exam: General: Nontoxic, no apparent distress. HEENT: Sclera and conjunctiva within normal limits, without xanthelasmas. Neck: Carotids 2+ without bruits. Respiratory: Clear to auscultation, air movement is good, without accessory respiratory muscle use. Heart: Regular rate and rhythm, without murmurs, without JVD. Abdomen: Soft, nontender, no masses, normoactive bowel sounds. Extremities: Without clubbing, cyanosis, without edema. Neuro: Nonfocal exam, strength, 5 out of 5 Skin: Within normal limits without lesions. Psych: Mood and affect: Normal Labs/Luther Results: Laboratory Tests 05/02 05/02 05/01 0330 0330 2144 Chemistry Sodium (137 - 145 mmol/L) 135 L Potassium (3.5 - 5.1 mmol/L) 4.2 Chloride (98 - 107 mmol/L) 102 Carbon Dioxide (22 - 30 mmol/L) 26 Anion Gap (5 - 16) 7 BUN (9 - 20 mg/dL) 14 Creatinine (0.7 - 1.2 mg/dL) 0.7 Estimated GFR (>60 ml/min) > 60 BUN/Creatinine Ratio (7 - 25 %) 20.0 Troponin I (<0.11 ng/ml) < 0.01 < 0.01 Triglycerides (<150 mg/dL) 89 Cholesterol (< 200 MG/DL) 124 LDL Cholesterol, Calc (65 - 129 mg/dL) 58 L HDL Cholesterol (40 - 60 mg/dL) 49 Cholesterol/HDL Ratio (0.00 - 4.88 %) 3 Coagulation PT (9.4 - 12.5 SEC) 26.5 H INR (0.90 - 1.17) 2.55 H Hematology CBC w Diff NO MAN DIFF REQ WBC (4.8 - 10.8 /CUMM) 6.4 RBC (4.70 - 6.10 /CUMM) 4.55 L Hgb (14.0 - 18.0 G/DL) 14.6 Hct (42 - 52 %) 43.6 MCV (80.0 - 94.0 FL) 95.8 H MCH (27.0 - 31.0 PG) 32.1 H RDW (11.5 - 14.5 %) 13.6 Plt Count (130 - 400 /CUMM) 113 L MPV (7.4 - 10.4 FL) 7.8 Gran % (42.2 - 75.2 %) 59.0 Lymphocytes % (20.5 - 51.1 %) 27.2 Monocytes % (1.7 - 9.3 %) 11.1 H Eosinophils % (0 - 5 %) 2.1 Basophils % (0.0 - 2.0 %) 0.6 Absolute Granulocytes (1.4 - 6.5 /CUMM) 3.8 Absolute Lymphocytes (1.2 - 3.4 /CUMM) 1.7 Absolute Monocytes (0.10 - 0.60 /CUMM) 0.7 H Absolute Eosinophils (0.0 - 0.7 /CUMM) 0.1 Absolute Basophils (0.0 - 0.2 /CUMM) 0 PUBS MCHC (33.0 - 37.0 G/DL) 33.5 Toxicology Digoxin (0.8 - 2.0 ng/mL) 0.7 L 05/01 05/01 1818 1808 Chemistry Magnesium Cancelled Yqp-G-Ktptyrakqer Pept Cancelled Lipase Cancelled Coagulation PT (9.4 - 12.5 SEC) 33.0 H INR (0.90 - 1.17) 3.18 H D-Dimer High Sensitivty (0 - 243 ng/ml) Cancelled < 200 Urines Urine Color (YEL,AMB,STR) YEL Urine Clarity (CLEAR) CLEAR Urine pH (5.0 - 8.0) 6.0 Ur Specific [place] (1.001 - 1.035) 1.015 Urine Protein (NEG,<30 MG/DL) NEG Urine Ketones (NEG) NEG Urine Nitrite (NEG) NEG Urine Bilirubin (NEG) NEG Urine Urobilinogen (0.1 - 1.0 EU/dl) 0.2 Ur Leukocyte Esterase (NEG) NEG Ur Microscopic EXAM NOT REQUIRED Urine Hemoglobin (NEG) NEG Urine Glucose (N MG/DL) NEG 05/01 1805 Chemistry Sodium (137 - 145 mmol/L) 132 L Potassium (3.5 - 5.1 mmol/L) 4.1 Chloride (98 - 107 mmol/L) 100 Carbon Dioxide (22 - 30 mmol/L) 25 Anion Gap (5 - 16) 7 BUN (9 - 20 mg/dL) 20 Creatinine (0.7 - 1.2 mg/dL) 0.7 Estimated GFR (>60 ml/min) > 60 BUN/Creatinine Ratio (7 - 25 %) 28.6 H Glucose (65 - 99 mg/dL) 122 H Calcium (8.4 - 10.2 mg/dL) 9.5 Magnesium (1.6 - 2.3 mg/dL) 1.9 Total Bilirubin (0.2 - 1.3 mg/dL) 0.7 AST (17 - 59 U/L) 28 ALT (21 - 72 U/L) 37 Alkaline Phosphatase (< 127 U/L) 53 Troponin I (<0.11 ng/ml) < 0.01 Xpb-H-Cjqphcvbgur Pept (<125 pg/mL) 651 H Total Protein (6.3 - 8.2 g/dL) 6.5 Albumin (3.5 - 5.0 g/dL) 3.9 Globulin (1.9 - 4.2 gm/dL) 2.6 Albumin/Globulin Ratio (1.1 - 2.2 %) 1.5 Lipase (23 - 300 U/L) 144 Hematology CBC w Diff NO MAN DIFF REQ WBC (4.8 - 10.8 /CUMM) 6.9 RBC (4.70 - 6.10 /CUMM) 4.51 L Hgb (14.0 - 18.0 G/DL) 14.2 Hct (42 - 52 %) 43.2 MCV (80.0 - 94.0 FL) 95.8 H MCH (27.0 - 31.0 PG) 31.5 H RDW (11.5 - 14.5 %) 14.1 Plt Count (130 - 400 /CUMM) 131 MPV (7.4 - 10.4 FL) 7.6 Gran % (42.2 - 75.2 %) 69.1 Lymphocytes % (20.5 - 51.1 %) 18.3 L Monocytes % (1.7 - 9.3 %) 10.9 H Eosinophils % (0 - 5 %) 1.4 Basophils % (0.0 - 2.0 %) 0.3 Absolute Granulocytes (1.4 - 6.5 /CUMM) 4.8 Absolute Lymphocytes (1.2 - 3.4 /CUMM) 1.3 Absolute Monocytes (0.10 - 0.60 /CUMM) 0.8 H Absolute Eosinophils (0.0 - 0.7 /CUMM) 0.1 Absolute Basophils (0.0 - 0.2 /CUMM) 0 PUBS MCHC (33.0 - 37.0 G/DL) 32.9 L Assessment/Plan Assessment/Plan 81-year-old gentleman with a past medical history of coronary artery disease ( status post bypass surgery in 2014), bioprosthetic aortic valve replacement ( 2014), sick sinus syndrome (status post maze and left atrial appendage ligation 2014), dual-chamber pacemaker implantation, paroxysmal atrial fibrillation (on Coumadin). He presented with symptoms of chest discomfort. Chest pain: The patient presents with chest discomfort which is atypical for an ischemic cardiac etiology and that it occurs with mild activity; however, he has been able to perform greater than amounts of activity symptoms. He has had 2 negative troponin isoenzymes to date. The etiology of his symptoms may be secondary to increasing cough secondary to postnasal drip, and we have discussed qfwr-bla-yhghgjt agents to alleviate this. At this time, we will attempt ambulation and if a third troponin isoenzyme is negative may consider discharge to home with further outpatient follow-up including possible outpatient stress testing. Coronary artery disease: Continue current medication regimen. Atrial fibrillation: Continue current medication regimen including full anticoagulation. His pacemaker will be interrogated and if no skin arrhythmias are seen, we may consider decreasing or discontinuing his regimen of amiodarone. This will be performed as an outpatient. Thank you for allowing us to participate in the care of your patient. Please do not hesitate to contact us further with any questions. Sincerely, Miguel Batista MD [facility] Consult Acknowledgment - Thank you for your consult request.
--- NOTE | 2017-05-02 13:43 | Patient Discharge Instructions ---
Discharge Instructions General Discharge Information Special Instructions: Follow up with your primary care provider and your acupuncturist after discharge. Continue to take all your previous home medications. Acute Coronary Syndrome Inclusion Criteria At DC or during hospital stay patient has or had the following: ACS DIAGNOSIS No Discharge Core Measures Meds if any: Prescribed or Continued at Discharge Meds if any: NOT Prescribed or Continued at Discharge Congestive Heart Failure Inclusion Criteria At DC or during hospital stay patient has or had the following: CHF DIAGNOSIS No Discharge Core Measures Meds if any: Prescribed or Continued at Discharge Meds if any: NOT Prescribed or Continued at Discharge Cerebrovascular accident Inclusion Criteria At DC or during hospital stay patient has or had the following: CVA/TIA Diagnosis No Discharge Core Measures Meds if any: Prescribed or Continued at Discharge Meds if any: NOT Prescribed or Continued at Discharge Venous thromboembolism Inclusion Criteria VTE Diagnosis No VTE Type NONE VTE Confirmed by (Test) NONE Discharge Core Measures - Per Current guidelines, there needs to be overlap - treatment for the first 5 days of Warfarin therapy. - If discharged on Warfarin prior to 5 days of - overlap therapy, the patient will need to be - assessed for post discharge needs including - *Post discharge parental anticoagulation - *Warfarin and/or parental anticoagulation education - *Follow up date to check INR post discharge At least 5 days overlap therapy as Inpatient No Meds if any: Prescribed or Continued at Discharge Note: Overlap Therapy is Warfarin and Anticoagulant Meds if any: NOT Prescribed or Continued at Discharge
== END 2017-05-02 15:51 ==
LOC: ERH 17:29 → ERHI 20:37 → ENRESERV 22:17 → ENTRNSPT 22:36 → 1NO 22:41 → CMPTRNSPT 22:50 → ENPENDDIS 05-02 14:07 → 1NO 05-02 15:51
PROVIDERS: Internal Medicine; Physician Assistant Medical; ADMIT Internal Medicine
DX: R07.9 Chest pain, unspecified (principal); I25.2 Old myocardial infarction; I10 Essential (primary) hypertension; Z87.891 Personal history of nicotine dependence; Z95.2 Presence of prosthetic heart valve; Z79.01 Long term (current) use of anticoagulants; Z95.0 Presence of cardiac pacemaker; Z86.718 Personal history of other venous thrombosis and embolism; I48.0 Paroxysmal atrial fibrillation; I25.119 Atherosclerotic heart disease of native coronary artery with unspecified angina pectoris; E78.5 Hyperlipidemia, unspecified; K21.9 Gastro-esophageal reflux disease without esophagitis; N40.0 Benign prostatic hyperplasia without lower urinary tract symptoms; M19.90 Unspecified osteoarthritis, unspecified site
CPT/HCPCS: 6020; 36415; 81003; 82436; 87070; 93005; 93010; G0378